=== PATIENT | male | born 1985 | race African-American/Black ===

== ENCOUNTER 2016-12-24 11:49 | Emergency (ER) | payer OTHER ==
[2016-12-24 12:00] VITALS: TEMP 98.3; BMI 27.8
--- NOTE | 2016-12-24 12:15 | PDOC ---
History of Present Illness - General History Source: Patient Exam Limitations: No Limitations - History of Present Illness Initial Comments: 12/24/16 12:26 The patient is a 31 year old male with no significant past medical history who presents to the ED with complaints of generalized abdominal pain since 5 am this morning. The patient reports sharp non radiating generalized abdominal pain that woke him up from his sleep. He states the last thing he ate was a beef rick last night and reports spitting out the beef rick this morning. Denies fevers or chills. Denies nausea, diarrhea, or abdominal distention. Denies chest pain or shortness of breath. Denies dysuria or difficulty urinating. <Eduarda Mclaughlin - Last Filed: 12/24/16 18:24> <William August - Last Filed: 12/24/16 18:41> - General Chief Complaint: Pain, Acute Stated Complaint: ABDOMINAL PAIN Time Seen by Provider: 12/24/16 12:14 Past History <Eduarda Mclaughlin - Last Filed: 12/24/16 18:24> - Past Medical History GI Disorders: Yes (colitis) - Immunization History Immunization Up to Date: No - Psycho/Social/Smoking Cessation Hx Anxiety: No Suicidal Ideation: No Smoking History: Never smoked Have you smoked in the past 12 months: No Hx Alcohol Use: No Drug/Substance Use Hx: No Substance Use Type: Marijuana <William August - Last Filed: 12/24/16 18:41> - Past Medical History Allergies/Adverse Reactions: Allergies Allergy/AdvReac Type Severity Reaction Status Date / Time No Known Allergies Allergy Verified 12/24/16 11:53 Home Medications: Ambulatory Orders Famotidine [Pepcid] 20 mg PO DAILY #14 tablet 09/25/16 Sucralfate Oral Suspension [Carafate Oral Suspension -] 1 gm PO QID #12 ml 09/25 Pantoprazole Sodium [Protonix] 40 mg PO DAILY #30 tablet. 09/26/16 Dicyclomine HCl [Bentyl -] 20 mg PO Q8H #21 tablet 12/24/16 Ondansetron [Zofran *Odt*] 8 mg SL TID #30 od.tablet 12/24/16 Review of Systems - Review of Systems Able to Perform ROS?: Yes Comments:: 12/24/16 12:26 GENERAL/CONSTITUTIONAL: No fever or chills. No weakness. HEAD, EYES, EARS, NOSE AND THROAT: No change in vision. No ear pain or discharge. No sore throat. CARDIOVASCULAR: No chest pain or shortness of breath. RESPIRATORY: No cough, wheezing, or hemoptysis. GASTROINTESTINAL: + Abdominal pain. No nausea, vomiting, diarrhea or constipation. GENITOURINARY: No dysuria, frequency, or change in urination. MUSCULOSKELETAL: No joint or muscle swelling or pain. No neck or back pain. SKIN: No rash NEUROLOGIC: No headache, vertigo, loss of consciousness, or change in strength/ sensation. ENDOCRINE: No increased thirst. No abnormal weight change. HEMATOLOGIC/LYMPHATIC: No anemia, easy bleeding, or history of blood clots. ALLERGIC/IMMUNOLOGIC: No hives or skin allergy. All Other Systems: Reviewed and Negative <Eduarda Mclaughlin - Last Filed: 12/24/16 18:24> *Physical Exam - Vital Signs Last Vital Signs Temp Pulse Resp BP Pulse Ox 98.3 F 63 21 158/85 98 12/24/16 11:54 12/24/16 11:54 12/24/16 11:54 12/24/16 11:54 12/24/16 11:54 - Physical Exam Comments: 12/24/16 12:27 GENERAL: Awake, alert, and fully oriented, in no acute distress HEAD: No signs of trauma EYES: PERRLA, EOMI, sclera anicteric, conjunctiva clear ENT: Auricles normal inspection, hearing grossly normal, nares patent, oropharynx clear without exudates. Moist mucosa NECK: Normal ROM, supple, no lymphadenopathy, JVD, or masses LUNGS: Breath sounds equal, clear to auscultation bilaterally. No wheezes, and no crackles HEART: Regular rate and rhythm, normal S1 and S2, no murmurs, rubs or gallops ABDOMEN: Soft, nontender, normoactive bowel sounds. No guarding, no rebound. No masses EXTREMITIES: Normal range of motion, no edema. No clubbing or cyanosis. No cords, erythema, or tenderness NEUROLOGICAL: Cranial nerves II through XII grossly intact. Normal speech, normal gait SKIN: Warm, Dry, normal turgor, no rashes or lesions noted. <Eduarda Mclaughlin - Last Filed: 12/24/16 18:24> - Vital Signs Last Vital Signs Temp Pulse Resp BP Pulse Ox 98.3 F 63 21 158/85 98 12/24/16 11:54 12/24/16 11:54 12/24/16 11:54 12/24/16 11:54 12/24/16 11:54 <William August - Last Filed: 12/24/16 18:41> Heart Score/ECG Review #1 12/24/16 14:38 Vent. rate 62 bom OH interval 182 ms QRS duraion 90 ms Normal sinus rhythm Voltage criteria for left ventricular hypertrophy ST elevation, consider early repolarization, pericarditis, or injury ST & T wave abnormality, consider inferior ischemia <Eduarda Mclaughlin - Last Filed: 12/24/16 18:24> ED Treatment Course - LABORATORY CBC & Chemistry Diagram: 12/24/16 13:15 12/24/16 13:15 - RADIOLOGY Radiograph Interpretation: 12/24/16 18:24 EXAM: CT ABDOMEN AND PELVIS WITH CONTRAST Ill-defined cortical hypodensities left greater than right kidneys, correlate clinically for pyelonephritis. No bowel obstruction, colitis, diverticulitis, free fluid or free air. Normal appendix. Unremarkable pancreas and gallbladder. Small umbilical hernia containing fat. Reported by: Imaging protection mgr Jeannette Chavez M.D <Eduarda Mclaughlin - Last Filed: 12/24/16 18:24> - LABORATORY CBC & Chemistry Diagram: 12/24/16 13:15 12/24/16 13:15 <William August - Last Filed: 12/24/16 18:41> *DC/Admit/Observation/Transfer - Attestations Physician Attestion: 12/24/16 12:27 Documentation prepared by Eduarda Mclaughlin, acting as medical collector for William August MD <Eduarda Mclaughlin - Last Filed: 12/24/16 18:24> - Discharge Dispostion Admit: No - Attestations Physician Attestion: 12/24/16 12:15 I, Dr. William August, attest that this document has been prepared under my direction and personally reviewed by me in its entirety. I further attest, that it accurately reflects all work, treatment, procedures and medical decision -making performed by me. <William August - Last Filed: 12/24/16 18:41> Diagnosis at time of Disposition: Abdominal pain of unknown cause - Discharge Dispostion Disposition: HOME Condition at time of disposition: Improved - Prescriptions Prescriptions: Dicyclomine HCl [Bentyl -] 20 mg PO Q8H #21 tablet Ondansetron [Zofran *Odt*] 8 mg SL TID #30 od.tablet - Referrals Referrals: Sonido Martinez MD [Staff Physician] - - Patient Instructions Printed Discharge Instructions: DI for Abdominal Pain-Adult Additional Instructions: Mihir.... All of your tests are normal. It is not clear why you were having such bad pain earlier. Call Dr. Martinez (GI) for follow up. Return to us if problems. Use the Zofran for nausea/vomiting. Use the bentyl for crampy pain. Best- Dr. William August
[2016-12-24] MEDS ORDERED: morphine CARPU-JECT 4 MG/1 ML DISP.SYRIN IVPUSH ONE ×2 (12:25→14:08)
[2016-12-24] MEDS ORDERED: SODIUM CHLORIDE 1,000 ML IV STA (12:25)
[2016-12-24] MEDS ORDERED: ONDANSETRON 4 MG/2 ML VIAL IVPB ONE (12:25)
[2016-12-24] MEDS ORDERED: KETOROLAC TROMETHAMINE 30 MG/1 ML VIAL IVPUSH ONE (12:25)
[2016-12-24] MEDS ORDERED: METOCLOPRAMIDE HCL INJECTION 10 MG/2 ML VIAL IVPB ONE (12:25)
[2016-12-24] MEDS ORDERED: METOCLOPRAMIDE HCL INJECTION 10 MG/2 ML VIAL ONE (12:44)
[2016-12-24] MEDS ORDERED: ONDANSETRON 4 MG/2 ML VIAL ONE (12:44)
[2016-12-24] MEDS ORDERED: KETOROLAC TROMETHAMINE 30 MG/1 ML VIAL ONE (12:44)
[2016-12-24] MEDS ORDERED: morphine CARPU-JECT 4 MG/1 ML DISP.SYRIN ONE ×2 (12:44→14:31)
[2016-12-24 13:32] LABS: BASOPHIL 0.3 % (0-2.0); MCH 31.4 pg (25.7-33.7); MCHC 34.4 g/dl (32.0-35.9); MEAN CELL VOLUME 91.4 fl (80-96); MEAN PLT VOLUME 8.6 fl (7.5-11.1); NEUTROPHILS 83.1 % (42.8-82.8); PLATELET COUNT 219 K/MM3 (134-434); RDW 12.5 % (11.9-15.9); WHITE BLOOD COUNT 6.4 K/mm3 (4.0-10.0)
[2016-12-24 13:34] LABS: URINE APPEARANCE CLEAR; URINE BILIRUBIN NEGATIVE (NEGATIVE); URINE BLOOD NEGATIVE (NEGATIVE); URINE COLOR STRAW; URINE GLUCOSE (UA) 1+ (NEGATIVE); URINE KETONE TRACE (NEGATIVE); URINE LEUK ESTERASE NEGATIVE (NEGATIVE); URINE NITRITE NEGATIVE (NEGATIVE); URINE PROTEIN NEGATIVE (NEGATIVE); URINE UROBILINOGEN NEGATIVE E.U./dl (0.2-1.0)
[2016-12-24 13:45] LABS: ALBUMIN 4.4 g/dl (3.4-5.0); ANION GAP 14 (8-16); CALCIUM 9.8 mg/dL (8.5-10.1); CO2 23 mmol/L (21-32); CREATININE 1.2 mg/dL (0.7-1.3); GLUCOSE,RANDOM 123 mg/dL (74-106); SGPT/ALT 22 U/L (12-78)
[2016-12-24 13:46] LABS: ALK PHOS 66 U/L (45-117); TOT PROT 8.3 g/dl (6.4-8.2)
[2016-12-24 13:50] LABS: SGOT/AST 21 U/L (15-37)
[2016-12-24 19:35] VITALS: BP 138/69; PULSE 78
--- NOTE | 2016-12-26 17:17 | EKG ---
Test Reason : Blood Pressure : / mmHG Vent. Rate : 062 BPM Atrial Rate : 062 BPM P-R Int : 182 ms QRS Dur : 090 ms QT Int : 402 ms P-R-T Axes : 010 082 -36 degrees QTc Int : 408 ms NORMAL SINUS RHYTHM VOLTAGE CRITERIA FOR LEFT VENTRICULAR HYPERTROPHY ST ELEVATION, CONSIDER EARLY REPOLARIZATION, PERICARDITIS, OR INJURY ABNORMAL ECG NO PREVIOUS ECGS AVAILABLE Confirmed by DANIEL RUELAS MD ([id number]) on 12/26/2016 5:17:12 PM Referred By: Confirmed By:DANIEL RUELAS MD
== END 2016-12-24 19:36 | disposition home or self-care (01) ==
LOC: JER 11:49
PROC: 3E033NZ Introduction of Analgesics, Hypnotics, Sedatives into Peripheral Vein, Percutaneous Approach (ICD-10-PCS; principal; 2016-12-24)
PROC: 3E0333Z Introduction of Anti-inflammatory into Peripheral Vein, Percutaneous Approach (ICD-10-PCS; 2016-12-24)
PROC: 3E033GC Introduction of Other Therapeutic Substance into Peripheral Vein, Percutaneous Approach (ICD-10-PCS; 2016-12-24)
DX: R10.84 Generalized abdominal pain (principal)
CPT/HCPCS: 36415; 74177-TC; 80053; 81003; 83690; 85025; 93005; 93010; 99283-25; Q9967

== ENCOUNTER 2016-12-26 01:33 | Emergency (ER) | payer OTHER ==
--- NOTE | 2016-12-26 01:48 | PDOC ---
History of Present Illness - General History Source: Patient Exam Limitations: No Limitations - History of Present Illness Initial Comments: 12/26/16 01:56 The patient is a 31 year old male with no significant past medical history who presents to the ED with diffuse abdominal pain prior to arrival. Patient was seen in the ER on 12/24 for diffuse abdominal pain where he had an abdomen and pelvis CT that revealed colitis. Patient returns today for increasing abdominal pain with no associated nausea, vomiting, and diarrhea. He states the pain resolved after his last visit, but returned prior to presentation. He describes pain as 10/10 and collicky in nature. He also had a bowel movement just prior to arrival. The patient denies fever, chills, cough, SOB, chest pain, and palpitations. Allergies: NKDA Social History: No alcohol, tobacco, or drug use reported. Past Surgical History: None reported PCP: None reported <Sabine Michaud - Last Filed: 12/26/16 01:55> - General History Source: Patient <Boby Barry - Last Filed: 12/26/16 06:23> - General Stated Complaint: ABD PAIN Time Seen by Provider: 12/26/16 01:44 Past History <Sabine Michaud - Last Filed: 12/26/16 01:55> - Past Medical History GI Disorders: Yes (colitis) - Immunization History Immunization Up to Date: No - Psycho/Social/Smoking Cessation Hx Anxiety: No Suicidal Ideation: No Smoking History: Never smoked Have you smoked in the past 12 months: No Hx Alcohol Use: No Drug/Substance Use Hx: No Substance Use Type: Marijuana <Boby Barry - Last Filed: 12/26/16 06:23> - Past Medical History Allergies/Adverse Reactions: Allergies Allergy/AdvReac Type Severity Reaction Status Date / Time No Known Allergies Allergy Verified 12/26/16 01:59 Home Medications: Ambulatory Orders Ibuprofen 800 mg PO TID #30 tablet 12/26/16 Levofloxacin [Levaquin -] 500 mg PO DAILY #7 tablet 12/26/16 Metronidazole [Flagyl] 500 mg PO BID #14 tablet 12/26/16 Oxycodone HCl/Acetaminophen [Percocet 5-325 mg Tablet] 1 - 2 tab PO Q6H #20 tablet MDD 4 12/26/16 Review of Systems - Review of Systems Able to Perform ROS?: Yes Comments:: 12/26/16 01:56 CONSTITUTIONAL: Absent: fever, no chills, no fatigue EYES: Absent: visual changes ENT: Absent: ear pain, no sore throat CARDIOVASCULAR: Absent: chest pain, no palpitations RESPIRATORY: Absent: cough, no SOB GI: +abdominal pain Absent: no nausea, no vomiting, no constipation, no diarrhea GENITOURINARY: Absent: dysuria, no frequency, no hematuria MUSCULOSKELETAL: Absent: back pain, no arthralgia, no myalgia SKIN: Absent: rash NEURO: Absent: headache <Sabine Michaud - Last Filed: 12/26/16 01:55> *Physical Exam - Physical Exam Comments: 12/26/16 01:56 GENERAL: Well-appearing, well-nourished. Moderate distress. HEENT: Normocephalic, atraumatic. PERRL, EOM intact. CARDIOVASCULAR: Normal S1, S2. Regular rate and rhythm. PULMONARY: Clear to auscultation bilaterally. ABDOMEN: Soft, non-distended, mild diffuse tenderness. No rebound or guarding. EXTREMITIES: Normal ROM in all four extremities. No gross deformities. SKIN: Warm, dry. No rash NEUROLOGICAL: No focal neurological deficits. <Sabine Michaud - Last Filed: 12/26/16 01:55> ED Treatment Course - LABORATORY CBC & Chemistry Diagram: 12/26/16 02:00 12/26/16 02:00 <Boby Barry - Last Filed: 12/26/16 06:23> Medical Decision Making - Medical Decision Making 12/26/16 06:20 Dr. Barry: The scribe's documentation has been prepared under my direction and personally reviewed by me in its entirery. I confirm that the note above accurately reflects all work, treatment, procedures, and medical decision making performed by me. <Boby Barry - Last Filed: 12/26/16 06:23> *DC/Admit/Observation/Transfer - Attestations Scribe Attestion: 12/26/16 01:56 Documentation prepared by Sabine Michaud, acting as medical director/head team physician for Boby Barry MD <Sabine Michaud - Last Filed: 12/26/16 01:55> - Discharge Dispostion Admit: No <Boby Barry - Last Filed: 12/26/16 06:23> Diagnosis at time of Disposition: Colitis Abdominal pain Qualifiers: Abdominal location: generalized Qualified Code(s): R10.84 - Generalized abdominal pain - Discharge Dispostion Disposition: HOME Condition at time of disposition: Stable - Prescriptions Prescriptions: Metronidazole [Flagyl] 500 mg PO BID #14 tablet Ibuprofen 800 mg PO TID #30 tablet Levofloxacin [Levaquin -] 500 mg PO DAILY #7 tablet Oxycodone HCl/Acetaminophen [Percocet 5-325 mg Tablet] 1 - 2 tab PO Q6H #20 tablet MDD 4 - Referrals Referrals: William Negrete MD [Staff Physician] - - Patient Instructions Printed Discharge Instructions: DI for Colitis - Post Discharge Activity Work/School Note: Back to Work, Back to School
[2016-12-26] MEDS ORDERED: SODIUM CHLORIDE 1,000 ML IV STA (01:49)
[2016-12-26] MEDS ORDERED: FAMOTIDINE 20 MG/50 ML IVPB 50 ML IVPB ONE ×2 (01:49→01:57)
[2016-12-26] MEDS ORDERED: ONDANSETRON 4 MG/2 ML VIAL IVPUSH ONE (01:49)
[2016-12-26] MEDS ORDERED: KETOROLAC TROMETHAMINE 30 MG/1 ML VIAL IVPUSH ONE (01:49)
[2016-12-26] MEDS ORDERED: METRONIDAZOLE 500 MG PREMIXED 100 ML IVPB ONE ×2 (01:52→01:57)
[2016-12-26] MEDS ORDERED: LEVOFLOXACIN 500 MG IVPB 100 ML IVPB ONE ×2 (01:52→01:57)
[2016-12-26] MEDS ORDERED: KETOROLAC TROMETHAMINE 30 MG/1 ML VIAL ONE (01:56)
[2016-12-26] MEDS ORDERED: ONDANSETRON 4 MG/2 ML VIAL ONE (01:57)
[2016-12-26 02:00] VITALS: TEMP 98.2; BMI 26.6
[2016-12-26 02:28] LABS: BASOPHIL 0.5 % (0-2.0); EOSINOPHIL 0.9 % (0-4.5); MCH 31.3 pg (25.7-33.7); MCHC 34.8 g/dl (32.0-35.9); MEAN CELL VOLUME 89.8 fl (80-96); MEAN PLT VOLUME 8.3 fl (7.5-11.1); PLATELET COUNT 248 K/MM3 (134-434); RDW 12.5 % (11.9-15.9); WHITE BLOOD COUNT 6.8 K/mm3 (4.0-10.0)
[2016-12-26 02:43] LABS: INR 1.18 (0.82-1.09)
[2016-12-26] MEDS ORDERED: HYDROmorphone HCL CARPU-JECT 1 MG/1 ML DISP.SYRIN IVPUSH ONE ×2 (02:45→03:34)
[2016-12-26] MEDS ORDERED: HYDROmorphone HCL CARPU-JECT 1 MG/1 ML DISP.SYRIN ONE ×2 (02:47→03:43)
[2016-12-26 03:13] LABS: ALBUMIN 4.1 g/dl (3.4-5.0); ALK PHOS 63 U/L (45-117); AMYLASE 66 U/L (25-115); ANION GAP 13 (8-16); BILIRUBIN,TOTAL 1.5 mg/dL (0.2-1.0); CALCIUM 9.3 mg/dL (8.5-10.1); CO2 26 mmol/L (21-32); CREATININE 1.3 mg/dL (0.7-1.3); GLUCOSE,RANDOM 110 mg/dL (74-106); MAGNESIUM 1.8 mg/dL (1.8-2.4); SGOT/AST 14 U/L (15-37); SGPT/ALT 20 U/L (12-78); TOT PROT 7.4 g/dl (6.4-8.2)
[2016-12-26] MEDS ORDERED: POTASSIUM CHLORIDE TABS 20 MEQ TABLET.ER (FP) PO ONE ×3 (03:32→03:46)
[2016-12-26] MEDS ORDERED: OXYCODONE/APAP 5/325MG COMBO TABLET PO ONE (06:22)
[2016-12-26] MEDS ORDERED: OXYCODONE/APAP 5/325MG COMBO TABLET ONE (06:37)
[2016-12-26 06:46] VITALS: BP 130/57; PULSE 83
[2016-12-26] MEDS ORDERED: ONDANSETRON *ODT* 4 MG TABLET SL ONE (08:38)
[2016-12-26] MEDS ORDERED: morphine CARPU-JECT 2 MG/1 ML DISP.SYRIN SQ ONE (08:43)
[2016-12-26] MEDS ORDERED: morphine CARPU-JECT 4 MG/1 ML DISP.SYRIN ONE (08:44)
[2016-12-26] MEDS ORDERED: ONDANSETRON *ODT* 4 MG TABLET ONE (08:44)
== END 2016-12-26 10:41 | disposition home or self-care (01) ==
LOC: JER 01:33
PROC: 3E03329 Introduction of Other Anti-infective into Peripheral Vein, Percutaneous Approach (ICD-10-PCS; principal; 2016-12-26)
PROC: 3E033GC Introduction of Other Therapeutic Substance into Peripheral Vein, Percutaneous Approach (ICD-10-PCS; 2016-12-26)
PROC: 3E03329 Introduction of Other Anti-infective into Peripheral Vein, Percutaneous Approach (ICD-10-PCS; 2016-12-26)
PROC: 3E033NZ Introduction of Analgesics, Hypnotics, Sedatives into Peripheral Vein, Percutaneous Approach (ICD-10-PCS; 2016-12-26)
PROC: 3E0333Z Introduction of Anti-inflammatory into Peripheral Vein, Percutaneous Approach (ICD-10-PCS; 2016-12-26)
PROC: 3E023NZ Introduction of Analgesics, Hypnotics, Sedatives into Muscle, Percutaneous Approach (ICD-10-PCS; 2016-12-26)
DX: K52.9 Noninfective gastroenteritis and colitis, unspecified (principal)
CPT/HCPCS: 36415; 80053; 82150; 83690; 83735; 85025; 85610; 87040; 99282-25

== ENCOUNTER 2017-06-11 21:47 | Emergency (ER) | payer OTHER ==
[2017-06-11 21:57] VITALS: BP 121/104; PULSE 65; TEMP 97.7; BMI 27.8
[2017-06-11] MEDS ORDERED: SODIUM CHLORIDE 0.9% 1000 ML INFUS.BAG IV ONE (22:18)
[2017-06-11] MEDS ORDERED: morphine CARPU-JECT 2 MG/1 ML DISP.SYRIN IVPUSH ONE (22:18)
[2017-06-11] MEDS ORDERED: KETOROLAC TROMETHAMINE 30 MG/1 ML VIAL IVPUSH ONE (22:21)
[2017-06-11] MEDS ORDERED: morphine CARPU-JECT 2 MG/1 ML DISP.SYRIN ONE (22:44)
[2017-06-11] MEDS ORDERED: ONDANSETRON 4 MG/2 ML VIAL ONE (22:55)
[2017-06-11] MEDS ORDERED: ONDANSETRON 4 MG/2 ML VIAL IVPUSH ONE (23:02)
[2017-06-11] MEDS ORDERED: HYDROmorphone HCL CARPU-JECT 1 MG/1 ML DISP.SYRIN IVPUSH ONE (23:26)
[2017-06-11] MEDS ORDERED: HYDROmorphone HCL CARPU-JECT 1 MG/1 ML DISP.SYRIN ONE (23:28)
--- NOTE | 2017-06-11 23:37 | PDOC ---
History of Present Illness - General Chief Complaint: Pain Stated Complaint: STOMACH PAIN Time Seen by Provider: 06/11/17 22:08 - History of Present Illness Initial Comments: 06/11/17 23:36 CHIEF COMPLAINT: abd pain HISTORY OF PRESENT ILLNESS: 31 yo M with hx of colitis presents to ED with severe epigastric pain. Patient states that he has 4 episodes like this with one visit at [facility] and 3 visits to this hospital. Patient states he saw Dr. Martinez of GI approximately 2 months ago and had a negative endoscopy, but he was supposed to follow up with Dr. Martinez "but there was a crisis at my job so I wasn't able to make the appointment" and then he never followed up. Patient denies any vomiting, diarrhea, or rectal bleeding. PAST MEDICAL HISTORY: possible colitis per EMR FAMILY HISTORY: Denies SOCIAL HISTORY: Former marijuana user, patient reports that his last use was 2 months ago due to previous similar episodes of abd pain. Denies tobacco, alcohol , illicit drug use. SURGICAL HISTORY: Denies ALLERGIES: No known drug allergies REVIEW OF SYSTEMS General/Constitutional: Denies fever or chills. Denies weakness, weight change. HEENT: Denies change in vision. Denies ear pain or discharge. Denies sore throat. Cardiovascular: Denies chest pain or shortness of breath. Respiratory: Denies cough, wheezing, or hemoptysis. Gastrointestinal: Severe epigastric pain. Denies nausea, vomiting, diarrhea or constipation. Denies rectal bleeding. Genitourinary: Denies dysuria, frequency, or change in urination. Musculoskeletal: Denies joint or muscle swelling or pain. Denies neck or back pain. Skin and breasts: Denies rash or easy bruising. Neurologic: Denies headache, vertigo, loss of consciousness, or loss of sensation. PHYSICAL EXAM General Appearance: Well-appearing, appropriately dressed. No apparent distress. HEENT: EOMI, PERRLA, normal ENT inspection, normal voice, TMs normal, pharynx normal. No conjunctival pallor. No photophobia, scleral icterus. Neck: Supple. Trachea midline. No tenderness, rigidity, carotid bruit, stridor , lymphadenopathy, or thyromegaly. Respiratory/Chest: Lungs CTAB. Cardiovascular: RRR. S1, S2. Gastrointestinal/Abdominal: Normal bowel sounds. Abdomen soft, non-distended. No tenderness or rebound tenderness. No organomegaly, pulsatile mass, guarding , hernia, hepatomegaly, splenomegaly. Musculoskeletal/Extremities: Marked tenderness to epigastrum on palpation. Normal inspection. FROM of all extremities, normal capillary refill. Pelvis Stable. No CVA tenderness. No tenderness to extremities, pedal edema, swelling , erythema or deformity. Integumentary: Appropriate color, dry, warm. 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 Fully oriented, alert. Appropriate mood/affect. Motor strength 5/5. No appreciable EOM palsy, facial droop or sensory deficit. Past History - Past Medical History Allergies/Adverse Reactions: Allergies Allergy/AdvReac Type Severity Reaction Status Date / Time No Known Allergies Allergy Verified 06/11/17 21:54 Home Medications: Ambulatory Orders Ibuprofen 800 mg PO TID #30 tablet 12/26/16 Levofloxacin [Levaquin -] 500 mg PO DAILY #7 tablet 12/26/16 Metronidazole [Flagyl] 500 mg PO BID #14 tablet 12/26/16 Oxycodone HCl/Acetaminophen [Percocet 5-325 mg Tablet] 1 - 2 tab PO Q6H #20 tablet MDD 4 12/26/16 GI Disorders: Yes (colitis) - Immunization History Immunization Up to Date: No - Psycho/Social/Smoking Cessation Hx Anxiety: No Suicidal Ideation: No Smoking History: Never smoked Have you smoked in the past 12 months: No Information on smoking cessation initiated: No Hx Alcohol Use: No Drug/Substance Use Hx: No Substance Use Type: Marijuana Abd/GI Specific PMHX - Complaint Specific PMHX Colitis: Yes *Physical Exam - Vital Signs Last Vital Signs Temp Pulse Resp BP Pulse Ox 97.7 F 65 20 121/104 100 06/11/17 21:54 06/11/17 21:54 06/11/17 21:54 06/11/17 21:54 06/11/17 21:54 ED Treatment Course - LABORATORY CBC & Chemistry Diagram: 06/11/17 22:40 06/11/17 23:22 - RADIOLOGY Radiology Studies Ordered: Category Date Time Status ABDOMEN & PELVIS CT W/O CONTR [CT] Stat CT Scan 06/11/17 23:03 Ordered - Medications Given in the ED: ED Medications Discontinued Medications Generic Name Dose Route Start Last Admin Trade Name Freq PRN Reason Stop Dose Admin Ketorolac Tromethamine 30 mg 06/11/17 22:21 06/11/17 22:52 Toradol Injection - IVPUSH 06/11/17 22:22 30 mg ONCE ONE Administration Morphine Sulfate 2 mg 06/11/17 22:18 06/11/17 22:52 Morphine Injection - IVPUSH 06/11/17 22:19 2 mg ONCE ONE Administration Ondansetron HCl 8 mg 06/11/17 23:02 06/11/17 23:04 Zofran Injection IVPUSH 06/11/17 23:03 8 mg ONCE ONE Administration Sodium Chloride 1,000 ml 06/11/17 22:18 06/11/17 22:52 Normal Saline - IV 06/11/17 22:19 1,000 ml ONCE ONE Administration Medical Decision Making - Medical Decision Making 06/12/17 00:30 31 yo M with hx of colitis presents to ED with severe epigastric pain. -CBC, CMP, lipase -IVF -Zofran, morphine Patient continues to c/o severe pain. -1 mg Dilaudid IV Labs unremarkable. Reassessed patient after medication. Patient states he is feeling much better. He states that "I don't know why this keeps happening, they always do a CT scan when I have pain like this, and then they tell me my CT scans are negative. " Patient states that he would prefer to go home at this time than continue further workup as "you won't find anything, it's always like this." He states he will f/u with Dr. Martinez this week for further evaluation of recurrent acute pain of the abdomen. However patient states he would like to "wait for a little bit to see if the pain returns." Patient reassessed; at this time he states his pain has returned. -0.5 mg Dilaudid Patient will receive CT. 06/12/17 00:35 Ct negative for acute pathology. Patient states at this time the "pain is gone" and is ready to go home. Advised patient that he must f/u with Dr. Martinez this week per earlier discussion. Advised patient of signs and symptoms for return to ER; patient verbalized understanding and agrees to plan. *DC/Admit/Observation/Transfer Diagnosis at time of Disposition: Abdominal pain Qualifiers: Abdominal location: generalized Qualified Code(s): R10.84 - Generalized abdominal pain - Discharge Dispostion Disposition: HOME Condition at time of disposition: Stable Admit: No - Referrals Referrals: Sonido Martinez MD [Staff Physician] - - Patient Instructions Printed Discharge Instructions: DI for Abdominal Pain-Adult Additional Instructions: You MUST follow up with Dr. Martinez this week as we discussed. If you experience any fever, chills, nausea, vomiting, diarrhea or any new or worsening symptoms, please return to the ER immediately.
[2017-06-11 23:46] LABS: BASOPHIL 0.5 % (0-2.0); EOSINOPHIL 1.9 % (0-4.5); MCH 31.8 pg (25.7-33.7); MCHC 34.6 g/dl (32.0-35.9); MEAN CELL VOLUME 91.8 fl (80-96); MEAN PLT VOLUME 8.3 fl (7.5-11.1); NEUTROPHILS 51.3 % (42.8-82.8); PLATELET COUNT 208 K/MM3 (134-434); WHITE BLOOD COUNT 6.9 K/mm3 (4.0-10.0)
[2017-06-12 00:09] LABS: ALBUMIN 4.2 g/dl (3.4-5.0); ALK PHOS 61 U/L (45-117); ANION GAP 11 (8-16); BILIRUBIN,TOTAL 0.7 mg/dL (0.2-1.0); CALCIUM 9.2 mg/dL (8.5-10.1); CO2 28 mmol/L (21-32); CREATININE 1.2 mg/dL (0.7-1.3); GLUCOSE,RANDOM 92 mg/dL (74-106); SGOT/AST 14 U/L (15-37); SGPT/ALT 20 U/L (12-78); TOT PROT 7.5 g/dl (6.4-8.2)
[2017-06-12] MEDS ORDERED: HYDROmorphone HCL CARPU-JECT 1 MG/1 ML DISP.SYRIN IVPUSH ONE (01:32)
[2017-06-12] MEDS ORDERED: HYDROmorphone HCL CARPU-JECT 1 MG/1 ML DISP.SYRIN ONE (02:10)
[2017-06-12 05:16] LABS: URINE APPEARANCE CLEAR; URINE BILIRUBIN NEGATIVE (NEGATIVE); URINE BLOOD NEGATIVE (NEGATIVE); URINE COLOR LTYELLOW; URINE GLUCOSE (UA) NEGATIVE (NEGATIVE); URINE KETONE NEGATIVE (NEGATIVE); URINE LEUK ESTERASE NEGATIVE (NEGATIVE); URINE NITRITE NEGATIVE (NEGATIVE); URINE PROTEIN NEGATIVE (NEGATIVE); URINE UROBILINOGEN NEGATIVE mg/dL (0.2-1.0)
[2017-06-12 05:21] LABS: URINE MARIJUANA THC POSITIVE ng/ml (CUTOFF=50)
== END 2017-06-12 05:32 | disposition home or self-care (01) ==
LOC: JER 21:47
PROC: 3E033NZ Introduction of Analgesics, Hypnotics, Sedatives into Peripheral Vein, Percutaneous Approach (ICD-10-PCS; principal; 2017-06-11)
PROC: 3E033NZ Introduction of Analgesics, Hypnotics, Sedatives into Peripheral Vein, Percutaneous Approach (ICD-10-PCS; 2017-06-11)
PROC: 3E033NZ Introduction of Analgesics, Hypnotics, Sedatives into Peripheral Vein, Percutaneous Approach (ICD-10-PCS; 2017-06-11)
PROC: 3E033GC Introduction of Other Therapeutic Substance into Peripheral Vein, Percutaneous Approach (ICD-10-PCS; 2017-06-11)
PROC: 3E0333Z Introduction of Anti-inflammatory into Peripheral Vein, Percutaneous Approach (ICD-10-PCS; 2017-06-11)
DX: R10.84 Generalized abdominal pain (principal)
CPT/HCPCS: 36415; 74176-TC; 80053; 80307; 81003; 83690; 85025; 85610; 87086; 99282-25

== ENCOUNTER 2017-07-02 01:24 | Emergency (ER) | payer OTHER ==
[2017-07-02 03:08] VITALS: BMI 27.8
[2017-07-02] MEDS ORDERED: ONDANSETRON 4 MG/2 ML VIAL IVPB ONE (03:27)
[2017-07-02] MEDS ORDERED: KETOROLAC TROMETHAMINE 30 MG/1 ML VIAL IVPUSH ONE (03:27)
[2017-07-02] MEDS ORDERED: SODIUM CHLORIDE 1,000 ML IV STA (03:27)
[2017-07-02] MEDS ORDERED: KETOROLAC TROMETHAMINE 30 MG/1 ML VIAL ONE (03:39)
[2017-07-02] MEDS ORDERED: ONDANSETRON 4 MG/2 ML VIAL ONE (03:40)
--- NOTE | 2017-07-02 03:55 | PDOC ---
History of Present Illness - General Chief Complaint: Pain, Acute Stated Complaint: STOMACH PAIN Time Seen by Provider: 07/02/17 02:46 History Source: Patient Exam Limitations: No Limitations - History of Present Illness Initial Comments: 07/02/17 03:48 Patient is a 31M with history of abdominal pain (last seen 06/11, seen 5 other times in the past two years, all negative workups) here today complaining abdominal pain. Got full abdominal lab workup with abdominal CT with 1.5mg dilaudid given, workup negative. Today he is complaining of 12 hours epigastric pain, nonradiating. He rates the pain 10/10. He presented to the ED by laying down in the ED waiting room bathroom, unable to get up because of the pain. He then got up and walked to the wheelchair. He is complaining of associated nausea , vomiting, fevers, and chills. He states that he has seen Dr Cantrell as directed at his last visit and has an MRI set up to evaluate his abdominal pain. Past History - Past Medical History Allergies/Adverse Reactions: Allergies Allergy/AdvReac Type Severity Reaction Status Date / Time No Known Allergies Allergy Verified 07/02/17 03:08 Home Medications: Ambulatory Orders Ibuprofen 800 mg PO TID #30 tablet 12/26/16 Levofloxacin [Levaquin -] 500 mg PO DAILY #7 tablet 12/26/16 Metronidazole [Flagyl] 500 mg PO BID #14 tablet 12/26/16 Oxycodone HCl/Acetaminophen [Percocet 5-325 mg Tablet] 1 - 2 tab PO Q6H #20 tablet MDD 4 12/26/16 GI Disorders: Yes (colitis) - Immunization History Immunization Up to Date: No - Suicide/Smoking/Psychosocial Hx Smoking History: Former smoker Have you smoked in the past 12 months: Yes If you are a former smoker, when did you quit?: 02/24/2017 Information on smoking cessation initiated: No Hx Alcohol Use: Yes Drug/Substance Use Hx: No Substance Use Type: Alcohol, Marijuana Review of Systems - Review of Systems Comments:: 07/02/17 03:55 GENERAL/CONSTITUTIONAL: Positive for fevers, chills and diffuse weakness. HEAD, EYES, EARS, NOSE AND THROAT: No change in vision. No sore throat. CARDIOVASCULAR: No chest pain or shortness of breath RESPIRATORY: No cough, wheezing, or hemoptysis. GASTROINTESTINAL: Positive for nausea and vomiting. Negative for diarrhea or constipation. GENITOURINARY: No dysuria, frequency, or change in urination. MUSCULOSKELETAL: No joint or muscle swelling or pain. No neck or back pain. SKIN: No rash NEUROLOGIC: No headache, loss of consciousness, or change in strength/sensation. HEMATOLOGIC/LYMPHATIC: No anemia, easy bleeding, or history of blood clots. ALLERGIC/IMMUNOLOGIC: No hives or skin allergy. *Physical Exam - Vital Signs Last Vital Signs Temp Pulse Resp BP Pulse Ox 96.8 F L 89 18 155/93 99 07/02/17 03:05 07/02/17 03:05 07/02/17 03:05 07/02/17 03:05 07/02/17 03:05 - Physical Exam Comments: 07/02/17 03:57 GENERAL: Awake, alert, and fully oriented, in acute distress, screaming and flailing on bed HEAD: No signs of trauma, normocephalic, atraumatic EYES: PERRLA, EOMI, sclera anicteric, conjunctiva clear ENT: Auricles normal inspection, hearing grossly normal, nares patent, oropharynx clear without exudates. Moist mucosa LUNGS: No distress, speaks full sentences, clear to auscultation bilaterally HEART: Regular rate and rhythm, normal S1 and S2, no murmurs, rubs or gallops, peripheral pulses normal and equal bilaterally. ABDOMEN: Soft, nontender to palpation, normoactive bowel sounds. No guarding, no rebound. No masses. No reaction to bed shake. Sitting up during abdominal exam. EXTREMITIES: Normal inspection, Normal range of motion, no edema. NEUROLOGICAL: Cranial nerves II through XII grossly intact. Normal speech, normal gait, no focal sensorimotor deficits SKIN: Warm, Dry, normal turgor, no rashes or lesions noted. ED Treatment Course - LABORATORY CBC & Chemistry Diagram: 07/02/17 03:40 07/02/17 03:40 Medical Decision Making - Medical Decision Making 07/02/17 04:00 31M with history of abdominal pain with multiple negative workups here today with abdominal pain. Vital signs stable. Abdominal exam is not consistent with an acute abdomen. Will evaluate with abdominal labs, ua, utox. Will treat with zofran, 1L NS and toradol. Will attempt to avoid imaging due to recent normal CT and planned MRI. 07/02/17 05:54 Laboratory Tests 07/02/17 07/02/17 07/02/17 03:40 03:40 04:00 WBC 7.5 Hgb 13.7 Hct 39.6 Plt Count 241 Anion Gap 12 BUN 14 Creatinine 1.1 Stool Occult Blood U Marijuana (THC) Screen Positive 07/02/17 05:15 WBC Hgb Hct Plt Count Anion Gap BUN Creatinine Stool Occult Blood Negative U Marijuana (THC) Screen CBC shows no white count. UA neg. CMP shows no gap, normal kidney function. Utox positive for marijuana. Patient came to doctor station to complain that he had blood in his stool. He described it as a small amount of dark blood in his stool. Rectal exam showed no melena, no kenny blood, no masses. Occult blood was negative. 07/02/17 07:00 Patient given tylenol for abdominal pain. Ambulatory in ED. Physical exam still not consistent with acute abdomen. Patient is pacing in the ED. States that he' s going to go to another hospital to deal with this pain. Vital signs remain stable and normal. *DC/Admit/Observation/Transfer Diagnosis at time of Disposition: Abdominal pain - Discharge Dispostion Disposition: HOME Condition at time of disposition: Guarded - Referrals Referrals: Liban Ayers MD [Primary Care Provider] -
[2017-07-02 04:13] LABS: BASOPHIL 0.5 % (0-2.0); EOSINOPHIL 0.4 % (0-4.5); MCHC 34.7 g/dl (32.0-35.9); MEAN CELL VOLUME 89.3 fl (80-96); MEAN PLT VOLUME 7.6 fl (7.5-11.1); NEUTROPHILS 72.8 % (42.8-82.8); PLATELET COUNT 241 K/MM3 (134-434); RDW 12.6 % (11.9-15.9); WHITE BLOOD COUNT 7.5 K/mm3 (4.0-10.0)
[2017-07-02 04:15] LABS: URINE APPEARANCE SLCLOUDY; URINE BILIRUBIN NEGATIVE (NEGATIVE); URINE BLOOD NEGATIVE (NEGATIVE); URINE COLOR LTYELLOW; URINE GLUCOSE (UA) NEGATIVE (NEGATIVE); URINE KETONE NEGATIVE (NEGATIVE); URINE LEUK ESTERASE NEGATIVE (NEGATIVE); URINE NITRITE NEGATIVE (NEGATIVE); URINE PROTEIN NEGATIVE (NEGATIVE); URINE UROBILINOGEN NEGATIVE mg/dL (0.2-1.0)
[2017-07-02 04:38] LABS: ALBUMIN 4.1 g/dl (3.4-5.0); ANION GAP 12 (8-16); BILIRUBIN,TOTAL 0.5 mg/dL (0.2-1.0); CALCIUM 8.8 mg/dL (8.5-10.1); CO2 25 mmol/L (21-32); CREATININE 1.1 mg/dL (0.7-1.3); GLUCOSE,RANDOM 118 mg/dL (74-106); SGOT/AST 15 U/L (15-37); SGPT/ALT 21 U/L (12-78); TOT PROT 7.5 g/dl (6.4-8.2)
[2017-07-02 04:39] LABS: ALK PHOS 57 U/L (45-117)
[2017-07-02 05:42] LABS: URINE MARIJUANA THC POSITIVE ng/ml (CUTOFF=50)
[2017-07-02] MEDS ORDERED: ACETAMINOPHEN 1000 MG/100 ML VIAL (NON FORMULARY) IVPB ONE (05:50)
--- NOTE | 2017-07-02 05:53 | PDOC ---
Attending Attestation - Resident Resident Name: NickJohn tang - HPI HPI: 07/02/17 05:51 Pt comes with abd pain. He has been here multiple.times for the same and he has had multiple imaging studies. We will not get imaging today and we will not treat with narcotics. Rather we will chek labs and treat with IV toradol and ofirmev, if needed. - Physicial Exam PE: 07/02/17 05:53 Agree with resident exam - Medical Decision Making 07/02/17 05:53 Lbas normal. Pt will go home with no meds. Follow with PMD or GI.
[2017-07-02] MEDS ORDERED: ACETAMINOPHEN INJECTION 100 ML IVPB ONE (06:30)
[2017-07-02] MEDS ORDERED: MAGNESIUM SULF 50% (8.12 MEQ/2 ML-1 GM VIAL) IVPB ONE (06:36)
[2017-07-02] MEDS ORDERED: MAGNESIUM SULF 50% (8.12 MEQ/2 ML-1 GM VIAL) ONE (06:39)
[2017-07-02 07:00] VITALS: BP 140/96; PULSE 85; TEMP 96.6
== END 2017-07-02 07:04 | disposition home or self-care (01) ==
LOC: JER 01:24
PROC: 3E033NZ Introduction of Analgesics, Hypnotics, Sedatives into Peripheral Vein, Percutaneous Approach (ICD-10-PCS; principal; 2017-07-02)
PROC: 3E033GC Introduction of Other Therapeutic Substance into Peripheral Vein, Percutaneous Approach (ICD-10-PCS; 2017-07-02)
DX: R10.84 Generalized abdominal pain (principal)
CPT/HCPCS: 36415; 80053; 80307; 81003; 82272; 83690; 85025; 99283-25

== ENCOUNTER 2018-05-16 05:01 | Day surgery (SDC) | payer BC ==
[2018-05-13 11:56] VITALS: BMI 26.0
[2018-05-16] MEDS ORDERED: MIDAZOLAM HCL 2 MG/2 ML SINGLE DOSE VIAL ONE (07:24)
[2018-05-16] MEDS ORDERED: KETOROLAC TROMETHAMINE 30 MG/1 ML VIAL ONE (07:26)
[2018-05-16] MEDS ORDERED: DEXAMETHASONE SOD PHOSPHATE 4 MG/1 ML VIAL ONE ×2 (07:26→08:21)
[2018-05-16] MEDS ORDERED: LIDOCAINE HCL/PF 2% SDV 5ML VIAL ONE (07:26)
[2018-05-16] MEDS ORDERED: SUCCINYLCHOLINE CHLORIDE 200 MG/10 ML VIAL ONE (07:28)
[2018-05-16] MEDS ORDERED: BUPIVACAINE HCL/PF 0.5% (5MG/ML) 10 ML VIAL ONE (07:49)
[2018-05-16] MEDS ORDERED: ONDANSETRON 4 MG/2 ML VIAL IVPUSH PRN (07:51)
[2018-05-16] MEDS ORDERED: oxyCODONE HCL 5 MG TABLET PO PRN ×2 (07:51)
[2018-05-16] MEDS ORDERED: ACETAMINOPHEN 1000 MG/100 ML VIAL (NON FORMULARY) IVPB ONE (07:52)
[2018-05-16] MEDS ORDERED: LACTATED RINGERS SOLUTION 1,000 ML IV SCH (08:00)
[2018-05-16] MEDS ORDERED: PROPOFOL 20 ML ONE ×3 (08:07→08:10)
--- NOTE | 2018-05-16 08:19 | HP ---
[facility] - Chief Complaint Chief Complaint: left knee pain History of Present Illness: left knee pain History Source: Patient Limitations to Obtaining History: No Limitations - Past Medical History Allergies/Adverse Reactions: Allergies Allergy/AdvReac Type Severity Reaction Status Date / Time No Known Allergies Allergy Verified 05/16/18 06:38 - Current Medications Current Medications: Home Medications Medication Instructions Recorded Omeprazole 40 mg PO DAILY 05/13/18 Satellite Physical Exam - Physical Examination Vital Signs: Vital Signs Period Temp Pulse Resp BP Sys/Knight Pulse Ox Last 24 Hr 97.7 F 42 18 121/66 99 General Appearance: Well Nourished ENT: Clear Lung: Clear to auscultation Heart: Regular rate & rhythm Breasts: Soft Abdomen: Soft Extremities: No edema Satellite Impression/Plan - Impression/Plan Impression: left knee pain, patella tendon calcifications Operative Procedure: left knee arthroscopy, open excision of patella tendon calcifications Date to be Performed: 05/16/18
[2018-05-16] MEDS ORDERED: ceFAZolin SODIUM 1 GM VIAL IVPB ONE (08:31)
[2018-05-16] MEDS ORDERED: SODIUM CHLORIDE 0.9% P/F 10 ML VIAL IJ ONE (08:31)
[2018-05-16] MEDS ORDERED: ceFAZolin SODIUM 1 GM VIAL ONE (08:31)
[2018-05-16] MEDS ORDERED: BUPIVACAINE HCL/PF 0.5% (5MG/ML) 10 ML VIAL IJ ONE ×2 (08:58→09:36)
--- NOTE | 2018-05-16 09:44 | OP ---
Operative Note - Note: Operative Date: 05/16/18 Pre-Operative Diagnosis: left knee pain Operation: left knee arthroscopy and open excision patella tendon calcifications , open patellar tendon repair Findings: calcifications within patellar tendon Post-Operative Diagnosis: Same as Pre-op Surgeon: Francis Vargas Anesthesiologist/[facility]: Jose J Woodall Anesthesia: Local, MAC Specimens Removed: calcifications from patellar tendon Estimated Blood Loss (mls): 0 Drains, Volume Out (mls): 0 Fluid Volume Replaced (mls): 500 Operative Report Dictated: Yes
[2018-05-16] MEDS ORDERED: MEPERIDINE HCL CARPU-JECT 25 MG/1 ML DISP.SYRIN IVPUSH ONE (09:49)
[2018-05-16] MEDS ORDERED: ACETAMINOPHEN INJECTION 100 ML IVPB ONE (10:11)
--- NOTE | 2018-05-16 10:39 | OP ---
DATE OF OPERATION: 05/16/2018 PREOPERATIVE DIAGNOSES: Left knee pain and patellar calcifications. POSTOPERATIVE DIAGNOSES: Left knee pain and patellar calcifications. PROCEDURE: 1. Left knee arthroscopy. 2. Open excision of patellar tendon calcifications. 3. Open repair of patellar tendon. SURGEON: Francis Vargas MD ASSISTANTS: None. ANESTHESIOLOGIST: ANESTHESIA: LMA with local injection, 20 mL 0.50% Marcaine. DRAINS: None. COMPLICATIONS: None. SPECIMEN: Calcifications, left patellar tendon. BLOOD LOSS: None. BLOOD GIVEN: None. FLUID REPLACEMENT: Plasma-Lyte 500 mL. This patient is a 32-year-old male with a preoperative diagnosis of very long-term, chronic pain in the left knee. After understanding the potential risks, complications, alternatives, and benefits of surgery versus nonsurgical treatment, the patient elected to undergo this procedure. Patient was brought to the operating room, peripheral IV placed, IV sedation given. One gram of IV Ancef was given. LMA anesthesia was induced. He was placed into the C-clamp leg estrada with ample padding on his left leg, and the Styrofoam ring was used. The left lower extremity was then prepped and draped in sterile fashion, elevated, exsanguinated with an Esmarch bandage. Tourniquet inflated to 275 mmHg. Next, a standard left knee arthroscopy was performed. A superomedial outflow portal was established. A lateral portal was established under direct visualization. Using a spinal needle, a medial portal was established. Diagnostic arthroscopy was performed. The medial compartment looked good, including the medial meniscus. The intercondylar notch looked good including the ACL. The lateral compartment looked good including the lateral meniscus. There was a lot of excessive Hoffa fat pad and synovitis anterior to the intercondylar notch and underneath the patellar tendon. This was all debrided with a curved shaver. The undersurface of the patellar tendon and the femoral trochlea looked good. There was excessive scar tissue in this area. This was debrided as well. The area was copiously irrigated and washed out. The knee put through a range of motion. I directly visualized the patellofemoral joint. There were no other points of abnormal contact, and the undersurface of the patellar tendon now looked good. Next, all arthroscopic equipment was removed. The excess saline removed. The arthroscopy portals closed with 3-0 nylon suture. A straight midline incision was marked out with a marking pen and made with a number-15 scalpel blade. Subcutaneous hemostasis was achieved with the Bovie cautery. Dissection was done down to the patellar bursa. This was opened longitudinally. Flaps were raised medially and laterally. This exposed the patellar tendon. On the surface, it looked normal. I was then able to palpate large calcifications within the proximal patellar tendon, extending from the distal pole of the patella. A number-15 scalpel blade was utilized to cut down through the patellar tendon to get to these calcifications. Circumferential dissection was done with the Bovie cautery. This exposed 1 very large and several smaller calcifications. An osteotome and rongeur were used to remove the calcifications and to smooth out the edges on the inferior pole of the patella. Scar tissue was removed as well. The area was copiously irrigated and washed out. I then could no longer see or feel any other abnormal calcifications. I then repaired the torn portions of the patellar tendon with 2-0 Vicryl suture. I used 2-0 Vicryl to close the prepatellar fascia and bursa directly over the patellar tendon repair, 2-0 Vicryl was used to close the deep dermal, and final skin reapproximation was done with horizontal mattress 3-0 nylon sutures. The area was then washed and dried, and 20 mL of 0.50% Marcaine were injected in and around the surgical incision. Xeroform gauze was used, 4 x 4 gauze, Webril, and a 6-inch Seth bandage. The tourniquet was taken down after total tourniquet time of 50 minutes. There were no complications during the case. The patient tolerated the procedure quite well and was brought to the ambulatory recovery room in stable condition. Greer [id number]
[2018-05-16 10:50] VITALS: TEMP 98
[2018-05-16] MEDS ORDERED: oxyCODONE HCL 5 MG TABLET ONE (11:59)
[2018-05-16] MEDS ORDERED: oxyCODONE HCL 5 MG TABLET PO ONE (12:00)
[2018-05-16 13:04] VITALS: BP 129/85; PULSE 45
--- NOTE | 2018-05-20 17:08 | PATH ---
Surgical Pathology Report Patient Name: MAYLIN MENDOZA Med. Rec. #: [id number] /Age/Gender: 1985 (Age: 32) / M Account: [id number] Location: [facility] Taken: 05/16/2018 Received: 05/16/2018 Reported: 05/20/2018 Physicians: Francis Vargas M.D. Specimen(s) Received A: LEFT KNEE SHAVINGS B: LEFT PATELLA CALCIFICATION Clinical History Tear left knee Final Diagnosis A. LEFT KNEE SHAVINGS: FRAGMENTS OF SYNOVIAL TISSUE AND FIBROADIPOSE TISSUE WITH FOCAL FIBROSIS. B. LEFT PATELLA CALCIFICATION, EXCISION: FRAGMENTS OF FIBROCARTILAGINOUS TISSUE AND BONE WITH FATTY MARROW SHOWING DEGENERATIVE CHANGE. Electronically Signed Terry Mcfarlane M.D. Gross Description A. Received in formalin, labeled "left knee shavings," is a 2.3 x 2.2 x 0.4 cm. aggregate of conroy-yellow soft tissue fragments. A aircraft sales representative portion is submitted in one cassette. B. Received in formalin labeled "left patella calcification," is a 3.0 x 2.4 x 0.6 cm aggregate of conroy portions of bone and cartilage. Clinical Athletic Instructor sections are submitted in one cassette, following decalcification. 05/16/201805/16/2018
== END 2018-05-16 13:20 | disposition home or self-care (01) ==
LOC: JASU-SURG 05:01
PROVIDERS: ATTEND Orthopaedic Surgery
PROC: 0LQR0ZZ Repair Left Knee Tendon, Open Approach (ICD-10-PCS; 2018-05-16)
PROC: 0SBD4ZZ Excision of Left Knee Joint, Percutaneous Endoscopic Approach (ICD-10-PCS; principal; 2018-05-16 08:00)
DX: M25.862 Other specified joint disorders, left knee (principal); M25.562 Pain in left knee
CPT/HCPCS: 88304-TC; 88311-TC; 94760; J0131

== ENCOUNTER 2019-12-10 22:19 | Emergency (ER) | payer BC ==
[2019-12-10 22:22] VITALS: BP 153/90; PULSE 76; TEMP 98; BMI 25.7
[2019-12-10] MEDS ORDERED: ONDANSETRON 4 MG/2 ML VIAL IVPUSH ONE (22:35)
[2019-12-10] MEDS ORDERED: LACTATED RINGERS SOLUTION 1000 ML INFUS.BAG IV ONE ×2 (22:35→23:53)
[2019-12-10] MEDS ORDERED: FAMOTIDINE 20 MG/50 ML IVPB 20 MG/50 ML MG IVPB ONE ×2 (22:35→22:55)
[2019-12-10] MEDS ORDERED: morphine CARPU-JECT 4 MG/1 ML DISP.SYRIN IVPUSH ONE (22:35)
[2019-12-10] MEDS ORDERED: morphine SULFATE 4 MG/ML VIAL ONE (22:44)
[2019-12-10] MEDS ORDERED: ONDANSETRON 4 MG/2 ML VIAL ONE (22:44)
[2019-12-10 23:11] LABS: BASO % 0.9 % (0-2.0); EOS % 2.5 % (0-4.5); HEMATOCRIT 39.4 % (35.4-49); HEMOGLOBIN 13.5 GM/dL (11.7-16.9); MCHC 34.4 g/dl (32.0-35.9); MEAN CELL VOLUME 93.2 fl (80-96); MEAN PLT VOLUME 8.2 fl (7.5-11.1); MONO % 8.5 % (3.8-10.2); NEUT % 29.1 % (42.8-82.8); PLATELET COUNT 213 K/MM3 (134-434); RBC 4.23 M/mm3 (4.00-5.60); WHITE BLOOD COUNT 5.1 K/mm3 (4.0-10.0)
[2019-12-10] MEDS ORDERED: LORazepam 2 MG/ML SDV VIAL ONE (23:25)
--- NOTE | 2019-12-10 23:26 | PDOC ---
History of Present Illness - General Chief Complaint: Pain Stated Complaint: CHEST PAIN Time Seen by Provider: 12/10/19 22:27 Past History - Past Medical History Allergies/Adverse Reactions: Allergies Allergy/AdvReac Type Severity Reaction Status Date / Time No Known Allergies Allergy Verified 12/10/19 22:23 Home Medications: Ambulatory Orders Omeprazole 40 mg PO DAILY 05/13/18 Hydrocodone/Acetaminophen [Hydrocodone-Acetamin 5-325 mg] 1 - 2 tab PO TID PRN # 40 tablet MDD 6 05/16/18 Anemia: No Asthma: No Cancer: No Cardiac Disorders: No CVA: No COPD: No CHF: No Dementia: No Diabetes: No GI Disorders: Yes (colitis) Disorders: No HTN: No Hypercholesterolemia: No Liver Disease: No Seizures: No Thyroid Disease: No - Immunization History Immunization Up to Date: No - Psycho Social/Smoking Cessation Hx Smoking History: Never smoked Have you smoked in the past 12 months: Yes If you are a former smoker, when did you quit?: 02/24/2017 Hx Alcohol Use: Yes (OCCASIONAL) Drug/Substance Use Hx: No Substance Use Type: Alcohol, Marijuana Hx Substance Use Treatment: No *Physical Exam - Vital Signs Last Vital Signs Temp Pulse Resp BP Pulse Ox 98.0 F 76 18 153/90 98 12/10/19 22:20 12/10/19 22:20 12/10/19 22:20 12/10/19 22:20 12/10/19 22:20 ED Treatment Course - LABORATORY CBC & Chemistry Diagram: 12/10/19 22:50 12/10/19 22:50 - ADDITIONAL ORDERS Additional order review: Laboratory Results 12/10/19 22:29 POC Glucometer 106 12/10/19 12/10/19 22:50 22:29 RBC 4.23 MCV 93.2 MCHC 34.4 RDW 13.0 MPV 8.2 Neutrophils % 29.1 L Lymphocytes % 59.0 H Monocytes % 8.5 Eosinophils % 2.5 Basophils % 0.9 POC Glucometer 106 - Medications Given in the ED: ED Medications Discontinued Medications Generic Name Dose Route Start Last Admin Trade Name Freq PRN Reason Stop Dose Admin Famotidine/Sodium Chloride 20 mg in 50 mls @ 100 mls/hr 12/10/19 22:35 23:21 Pepcid 20 Mg Premixed Ivpb - IVPB 12/10/19 23:04 100 mls/hr ONCE ONE Administration Lactated Ringer's 1,000 ml 12/10/19 22:35 12/10/19 22:51 Lactated Ringers Solution IV 12/10/19 22:36 1,000 ml ONCE ONE Administration Morphine Sulfate 4 mg 12/10/19 22:35 12/10/19 22:51 Morphine Injection - IVPUSH 12/10/19 22:36 4 mg ONCE ONE Administration Ondansetron HCl 4 mg 12/10/19 22:35 12/10/19 22:51 Zofran Injection IVPUSH 12/10/19 22:36 4 mg ONCE ONE Administration Medical Decision Making - Medical Decision Making 12/11/19 03:02 Pt AMA The patient is clinically not intoxicated, free from distracting pain, appears to have intact insight, judgment and reason and in my medical opinion has the capacity to make decisions. The patient is also not under any duress to leave the hospital. In this scenario, it would be battery to subject a patient to treatment against his/her will. I have voiced my concerns for the patient's health given that a full evaluation and treatment had not occurred. I have discussed the need for continued evaluation to determine if their symptoms are caused by a condition that present risk of or morbidity. Risks including but not limited to , permanent disability, prolonged hospitalization, prolonged illness, were discussed. I tried offering alternative options in hopes that the patient might be amenable to partial evaluation and treatment which would be medically beneficial to the patient, though the patient declined my options and insisted on leaving. Because I have been unable to convince the patient to stay, I answered all of their questions about their condition and asked them to return to the ED as soon as possible to complete their evaluation , especially if their symptoms worsen or do not improve. I emphasized that leaving against medical advice does not preclude returning here for further evaluation. I asked the patient to return if they change their mind about the further evaluation and treatment. I strongly encouraged the patient to return to this Emergency Department or any Emergency Department at any time, particularly with worsening symptoms. Discharge - Discharge Information Problems reviewed: Yes Clinical Impression/Diagnosis: Abdominal pain Condition: Stable Disposition: AGAINST MEDICAL ADVICE - Admission No - Follow up/Referral - Patient Discharge Instructions Patient Printed Discharge Instructions: DI for Abdominal Pain-Adult Additional Instructions: You were offered admission to the hospital for intractable pain and elevated lactic acid levels, however you refused. You signed paperwork stating that you are aware that leaving the hospital against medical advice can lead to permanent disability or . Please see your Primary Doctor within the next 48 hours. Call and make an appointment to see your GI doctor, Doctor Martinez within the next 48 hours. Take over the counter medication such as Tylenol and Motrin as needed and directed on the packaging for pain control. Return to the ER for new or concerning symptoms. Thank you - Post Discharge Activity
--- NOTE | 2019-12-10 23:26 | PDOC ---
Attending Attestation - Resident Resident Name: Jozef Galvan - ED Attending Attestation I have performed the following: I have examined & evaluated the patient, The case was reviewed & discussed with the resident, I agree w/resident's findings & plan, Exceptions are as noted - HPI HPI: 12/10/19 23:20 33yo male presents for eval of abd pain. States he has a hx of abd pain and follows with Dr. Martinez. Pt states he did not take his meds today & hasn't eaten since breakfast today. States he has upper abd pain. Has assoc nausea. Pt arrives moaning, flailing on the stretcher in acute distress. Pt with upper abd pain and b/l flank pain. - Physicial Exam PE: 12/10/19 23:26 gen: awake, flailing on the bed heent: dry mm neck: supple heart: +s1s2 reg lungs: cta b/l abd: soft, epigastric ttp, b/l cva ttp ext: no c/c/e - Medical Decision Making 12/10/19 23:27 a/p: 33yo male with upper abd pain -pt is diaphoretic upon arrival -will send labs, lactate, lipase -will send medicate for nausea, pain, ivf -will obtain ct abd/pelvis -will monitor and reassess 12/11/19 00:27 pt with low mag- will replace pt withou elevated wbc lipase neg 12/11/19 00:28 ua and uds collected and sent 12/11/19 01:15 ua neg 12/11/19 01:55 +marijuana, opiates, benzos - pt given opiates and benzos in the Er prior to giving urine sample 12/11/19 01:59 ct without acute findings for pain 12/11/19 02:16 pt with pending lactate Heart Score/ECG Review - ECG Intrepretation Comment:: 12/10/19 23:28 sinus at 67, R victor axis, nl interval, t wave inversions inferior leads and biphasic t wave lateral leads - abnl ekg, unchanged from 201612/10/19 23:31 repeat ekg: sinus at 82, R victor axis, nl interval, lvh, biphasic t waves lateral leads with t wave inversions inferior leads which are unchanged from 2017
[2019-12-10 23:51] LABS: ALK PHOS 63 U/L (45-117); ANION GAP 12 MMOL/L (8-16); BILIRUBIN,TOTAL 0.6 mg/dL (0.2-1); BLOOD UREA NITROGEN 16.1 mg/dL (7-18); CALCIUM 8.5 mg/dL (8.5-10.1); CHLORIDE 106 mmol/L (98-107); CO2 22 mmol/L (21-32); CREATININE 1.2 mg/dL (0.55-1.3); GLUCOSE,RANDOM 110 mg/dL (74-106); LIPASE 66 U/L (73-393); MAGNESIUM 1.6 mg/dL (1.8-2.4); POTASSIUM 3.6 mmol/L (3.5-5.1); SGOT/AST 32 U/L (15-37); SGPT/ALT 40 U/L (13-61); SODIUM 140 mmol/L (136-145); TOT PROT 7.6 g/dl (6.4-8.2)
[2019-12-10] MEDS ORDERED: MAGNESIUM SULF 50% (8.12 MEQ/2 ML-1 GM VIAL) IVPB ONE (23:53)
[2019-12-11] MEDS ORDERED: KETOROLAC TROMETHAMINE 30 MG/1 ML VIAL IVPUSH ONE (00:28)
[2019-12-11] MEDS ORDERED: KETOROLAC TROMETHAMINE 30 MG/1 ML VIAL ONE (00:36)
[2019-12-11 01:08] LABS: PH,URINE 7.5 (5.0-8.0); URINE APPEARANCE CLEAR; URINE BILIRUBIN NEGATIVE (NEGATIVE); URINE COLOR YELLOW; URINE GLUCOSE (UA) 2+ (NEGATIVE); URINE KETONE NEGATIVE (NEGATIVE); URINE LEUK ESTERASE NEGATIVE (NEGATIVE); URINE NITRITE NEGATIVE (NEGATIVE); URINE PROTEIN NEGATIVE (NEGATIVE); URINE UROBILINOGEN 0.2 mg/dL (0.2-1.0)
[2019-12-11 01:18] LABS: COCAINE, UR NEGATIVE ng/ml (CUTOFF=300); METHADONE, UR NEGATIVE ng/ml (CUTOFF=300); PHENCYCLIDINE,URINE NEGATIVE ng/ml (CUTOFF=25); URINE AMPHETAMINES NEGATIVE ng/ml (CUTOFF=500); URINE BARBITURATES NEGATIVE ng/ml (CUTOFF=200); URINE BENZODIAZEPINES NEGATIVE ng/ml (CUTOFF=200)
[2019-12-11 01:41] LABS: OPIATES, URI POSITIVE ng/ml (CUTOFF=300)
--- NOTE | 2019-12-11 03:07 | PDOC ---
*Physical Exam - Vital Signs Last Vital Signs Temp Pulse Resp BP Pulse Ox 98.0 F 76 18 153/90 98 12/10/19 22:20 12/10/19 22:20 12/10/19 22:20 12/10/19 22:20 12/10/19 22:20 - Physical Exam 12/11/19 03:03 awake alert anxious appearing. lungs clear bilat heart rrr no mrg abd soft nt. pt moaning ED Treatment Course - LABORATORY CBC & Chemistry Diagram: 12/10/19 22:50 12/10/19 22:50 - ADDITIONAL ORDERS Additional order review: Laboratory Results 12/11/19 12/11/19 12/11/19 02:00 00:05 00:05 Sodium Potassium Chloride Carbon Dioxide Anion Gap BUN Creatinine Est GFR (CKD-EPI)AfAm Est GFR (CKD-EPI)NonAf POC Glucometer Random Glucose Lactic Acid 4.6 H* Calcium Magnesium Total Bilirubin AST ALT Alkaline Phosphatase Creatine Kinase Creatine Kinase Index CK-MB (CK-2) Troponin I Total Protein Albumin Lipase Urine Color Yellow Urine Appearance Clear Urine pH 7.5 D Ur Specific [place] 1.019 Urine Protein Negative Urine Glucose (UA) 2+ H Urine Ketones Negative Urine Blood Negative Urine Nitrite Negative Urine Bilirubin Negative Urine Urobilinogen 0.2 Ur Leukocyte Esterase Negative Opiates Screen Positive A* Methadone Screen Negative Barbiturate Screen Negative Phencyclidine Screen Negative Ur Amphetamines Screen Negative MDMA (Ecstasy) Screen Negative Benzodiazepines Screen Negative Cocaine Screen Negative U Marijuana (THC) Screen Positive A* 12/10/19 12/10/19 12/10/19 23:00 22:50 22:29 Sodium 140 Potassium 3.6 Chloride 106 Carbon Dioxide 22 Anion Gap 12 BUN 16.1 Creatinine 1.2 Est GFR (CKD-EPI)AfAm 90.89 Est GFR (CKD-EPI)NonAf 78.42 POC Glucometer 106 Random Glucose 110 H Lactic Acid 5.3 H* Calcium 8.5 Magnesium 1.6 L Total Bilirubin 0.6 AST 32 ALT 40 Alkaline Phosphatase 63 Creatine Kinase 912 H Creatine Kinase Index 0.3 CK-MB (CK-2) 3.4 Troponin I < 0.02 Total Protein 7.6 Albumin 4.0 Lipase 66 L Urine Color Urine Appearance Urine pH Ur Specific [place] Urine Protein Urine Glucose (UA) Urine Ketones Urine Blood Urine Nitrite Urine Bilirubin Urine Urobilinogen Ur Leukocyte Esterase Opiates Screen Methadone Screen Barbiturate Screen Phencyclidine Screen Ur Amphetamines Screen MDMA (Ecstasy) Screen Benzodiazepines Screen Cocaine Screen U Marijuana (THC) Screen 12/10/19 12/10/19 22:50 22:29 RBC 4.23 MCV 93.2 MCHC 34.4 RDW 13.0 MPV 8.2 Neutrophils % 29.1 L Lymphocytes % 59.0 H Monocytes % 8.5 Eosinophils % 2.5 Basophils % 0.9 POC Glucometer 106 - Medications Given in the ED: ED Medications Discontinued Medications Generic Name Dose Route Start Last Admin Trade Name Freq PRN Reason Stop Dose Admin Famotidine/Sodium Chloride 20 mg in 50 mls @ 100 mls/hr 12/10/19 22:35 23:21 Pepcid 20 Mg Premixed Ivpb - IVPB 12/10/19 23:04 100 mls/hr ONCE ONE Administration Ketorolac Tromethamine 30 mg 12/11/19 00:28 12/11/19 00:45 Toradol Injection - IVPUSH 12/11/19 00:29 30 mg ONCE ONE Administration Lactated Ringer's 1,000 ml 12/10/19 22:35 12/10/19 22:51 Lactated Ringers Solution IV 12/10/19 22:36 1,000 ml ONCE ONE Administration Lorazepam 2 mg 12/10/19 23:24 12/10/19 23:39 Ativan Injection - IVPUSH 12/10/19 23:25 2 mg ONCE ONE Administration Lorazepam 2 mg 12/10/19 23:26 12/10/19 23:39 Ativan Injection - IVPUSH 12/10/19 23:27 Not Given ONCE ONE Morphine Sulfate 4 mg 12/10/19 22:35 12/10/19 22:51 Morphine Injection - IVPUSH 12/10/19 22:36 4 mg ONCE ONE Administration Ondansetron HCl 4 mg 12/10/19 22:35 12/10/19 22:51 Zofran Injection IVPUSH 12/10/19 22:36 4 mg ONCE ONE Administration Medical Decision Making - Medical Decision Making 12/11/19 03:05 33 yo male presenting with pain. evaluated by prior team with ct a/p found to be negative. pt with persistant yelling bouts of pain in the Ed. labs unremarkable except noted elevated Lactic acid. repeat lactic acid only mild improvement. pt denies drug use. or percocet use at home. several episodes of running to bathroom to stool. pt offered admission. states he will leave against medical advice, his cousin will pick him up. 12/11/19 03:48 pt offered admission several more times as constantly moaning he was in pain. refused to stay in hospital. would like to go home. Discharge - Discharge Information Problems reviewed: Yes Clinical Impression/Diagnosis: Abdominal pain Condition: Stable Disposition: AGAINST MEDICAL ADVICE - Follow up/Referral - Patient Discharge Instructions Patient Printed Discharge Instructions: DI for Abdominal Pain-Adult Additional Instructions: You were offered admission to the hospital for intractable pain and elevated lactic acid levels, however you refused. You signed paperwork stating that you are aware that leaving the hospital against medical advice can lead to permanent disability or . Please see your Primary Doctor within the next 48 hours. Call and make an appointment to see your GI doctor, Doctor Martinez within the next 48 hours. Take over the counter medication such as Tylenol and Motrin as needed and directed on the packaging for pain control. Return to the ER for new or concerning symptoms. Thank you - Post Discharge Activity
--- NOTE | 2019-12-11 14:04 | EKG ---
Test Reason : Blood Pressure : / mmHG Vent. Rate : 067 BPM Atrial Rate : 067 BPM P-R Int : 186 ms QRS Dur : 088 ms QT Int : 402 ms P-R-T Axes : 002 091 -13 degrees QTc Int : 424 ms NORMAL SINUS RHYTHM RIGHTWARD AXIS ST ELEVATION CONSIDER LATERAL INJURY OR ACUTE INFARCT ABNORMAL ECG WHEN COMPARED WITH ECG OF 24-DEC-2016 14:09, ST MORE ELEVATED IN LATERAL LEADS T WAVE INVERSION MORE EVIDENT IN ANTERIOR LEADS Confirmed by ANDREZ YI MD ([id number]) on 12/11/2019 2:03:28 PM Referred By: Confirmed By:ANDREZ YI MD
--- NOTE | 2019-12-15 09:38 | EKG ---
Test Reason : Blood Pressure : / mmHG Vent. Rate : 082 BPM Atrial Rate : 082 BPM P-R Int : 194 ms QRS Dur : 092 ms QT Int : 394 ms P-R-T Axes : 081 091 018 degrees QTc Int : 460 ms NORMAL SINUS RHYTHM POSSIBLE LEFT ATRIAL ENLARGEMENT IRBBB RIGHTWARD AXIS LEFT VENTRICULAR HYPERTROPHY T WAVE ABNORMALITY, CONSIDER LATERAL ISCHEMIA PROLONGED QT ABNORMAL ECG WHEN COMPARED WITH ECG OF 10-DEC-2019 22:53, T WAVE INVERSION LESS EVIDENT IN ANTERIOR LEADS Confirmed by Helio Casarez ([id number]) on 12/15/2019 9:37:42 AM Referred By: Confirmed By:Heilo Casarez
== END 2019-12-11 04:20 | disposition left against medical advice (07) ==
LOC: JER 22:19
PROC: 3E033GC Introduction of Other Therapeutic Substance into Peripheral Vein, Percutaneous Approach (ICD-10-PCS; principal; 2019-12-10)
PROC: 3E033NZ Introduction of Analgesics, Hypnotics, Sedatives into Peripheral Vein, Percutaneous Approach (ICD-10-PCS; 2019-12-10)
PROC: 3E0333Z Introduction of Anti-inflammatory into Peripheral Vein, Percutaneous Approach (ICD-10-PCS; 2019-12-10)
DX: R10.9 Unspecified abdominal pain (principal); R74.0 Nonspecific elevation of levels of transaminase and lactic acid dehydrogenase [LDH]
CPT/HCPCS: 36415; 71045-TC-FY; 74177-TC; 80053; 80307; 81003; 82550; 82553; 82962; 83605; 83690; 83735; 84484; 85025; 93005; 93010; 99285-25

== ENCOUNTER 2019-12-12 10:12 | Emergency (ER) | payer BC ==
[2019-12-12 10:23] VITALS: BMI 38.6
[2019-12-12 10:57] LABS: BASO % 0.7 % (0-2.0); EOS % 0.1 % (0-4.5); HEMATOCRIT 41.3 % (35.4-49); HEMOGLOBIN 14.3 GM/dL (11.7-16.9); LYMPH % 21.1 % (8-40); MCH 31.8 pg (25.7-33.7); MCHC 34.8 g/dl (32.0-35.9); MEAN CELL VOLUME 91.5 fl (80-96); MEAN PLT VOLUME 8.4 fl (7.5-11.1); MONO % 9.8 % (3.8-10.2); NEUT % 68.3 % (42.8-82.8); PLATELET COUNT 237 K/MM3 (134-434); RBC 4.51 M/mm3 (4.00-5.60); RDW 13.1 % (11.9-15.9); WHITE BLOOD COUNT 5.4 K/mm3 (4.0-10.0)
[2019-12-12] MEDS ORDERED: SODIUM CHLORIDE 1,000 ML IV STA (11:40)
[2019-12-12] MEDS ORDERED: PANTOPRAZOLE SODIUM 40 MG VIAL IVPUSH ONE (11:41)
[2019-12-12] MEDS ORDERED: HALOPERIDOL LACTATE 5 MG/ML IM ONE (11:42)
--- NOTE | 2019-12-12 11:42 | PDOC ---
History of Present Illness - General Chief Complaint: Pain, Acute Stated Complaint: ABD PAIN Time Seen by Provider: 12/12/19 11:20 History Source: Patient Exam Limitations: No Limitations Past History - Past Medical History Allergies/Adverse Reactions: Allergies Allergy/AdvReac Type Severity Reaction Status Date / Time No Known Allergies Allergy Verified 12/12/19 10:23 Home Medications: Ambulatory Orders Omeprazole 40 mg PO DAILY 05/13/18 Hydrocodone/Acetaminophen [Hydrocodone-Acetamin 5-325 mg] 1 - 2 tab PO TID PRN #40 tablet MDD 6 05/16/18 Anemia: No Asthma: No Cancer: No Cardiac Disorders: No CVA: No COPD: No CHF: No Dementia: No Diabetes: No GI Disorders: Yes (colitis) Disorders: No HTN: No Hypercholesterolemia: No Liver Disease: No Seizures: No Thyroid Disease: No - Immunization History Immunization Up to Date: No - Psycho Social/Smoking Cessation Hx Smoking History: Current every day smoker Have you smoked in the past 12 months: Yes Number of Cigarettes Smoked Daily: 5 If you are a former smoker, when did you quit?: 02/24/2017 Information on smoking cessation initiated: No Hx Alcohol Use: No Drug/Substance Use Hx: No Substance Use Type: Alcohol, Marijuana Hx Substance Use Treatment: No *Physical Exam - Vital Signs Last Vital Signs Temp Pulse Resp BP Pulse Ox 98 F 61 16 180/95 H 100 12/12/19 10:15 12/12/19 10:15 12/12/19 10:15 12/12/19 10:15 12/12/19 10:15 ED Treatment Course - LABORATORY CBC & Chemistry Diagram: 12/12/19 10:30 12/12/19 10:30 - ADDITIONAL ORDERS Additional order review: 12/12/19 10:30 RBC 4.51 MCV 91.5 MCHC 34.8 RDW 13.1 MPV 8.4 Neutrophils % 68.3 D Lymphocytes % 21.1 D Monocytes % 9.8 Eosinophils % 0.1 D Basophils % 0.7 Discharge - Follow up/Referral Referrals: Sonido Martinez MD [Primary Care Provider] - - Patient Discharge Instructions - Post Discharge Activity
[2019-12-12] MEDS ORDERED: HALOPERIDOL LACTATE 5 MG/ML ONE (11:44)
[2019-12-12] MEDS ORDERED: PANTOPRAZOLE SODIUM 40 MG/100 ML BAG IVPB ONE (11:44)
[2019-12-12 11:50] LABS: ALBUMIN 4.2 g/dl (3.4-5.0); BILIRUBIN,TOTAL 1.8 mg/dL (0.2-1); BLOOD UREA NITROGEN 19.2 mg/dL (7-18); CALCIUM 9.3 mg/dL (8.5-10.1); CREATININE 1.5 mg/dL (0.55-1.3); POTASSIUM 3.7 mmol/L (3.5-5.1); TOT PROT 8.2 g/dl (6.4-8.2)
[2019-12-12] MEDS ORDERED: FAMOTIDINE 20 MG/50 ML IVPB 20 MG/50 ML MG IVPB ONE ×2 (12:30→13:24)
--- NOTE | 2019-12-12 14:03 | PDOC ---
Documentation entered by Milena Coffey SCRIBE, acting as scribe for Kimmy Schreiber MD. Kimmy Schreiber MD: This documentation has been prepared by the Erlinda hall Nirvannie, SCRIBE, under my direction and personally reviewed by me in its entirety. I confirm that the documentation accurately reflects all work, treatment, procedures, and medical decision making performed by me. History of Present Illness - General Chief Complaint: Pain, Acute Stated Complaint: ABD PAIN Time Seen by Provider: 12/12/19 11:20 History Source: Patient Exam Limitations: No Limitations - History of Present Illness Initial Comments: 12/12/19 12:56 The patient is a 33 year old male, with a significant past medical history of GERD and colitis, who presents to the emergency department with 2 days of waxing and waning abdominal pain. At its worst, the patient describes it as a 10/10, unable to find a comfortable position, with associated nausea with emesis x3. Patient has been noncompliant with his Omeprazole x2 days secondary to decreased PO intake. Patient was evaluated in the ED 12/09-12/10 for similar symptoms at which time he had a CT scan, labs, and chest x-ray which only depicted an elevated lactic acid, decreased Mg, and positive drug screen. Patient at that time signed out AMA secondary to feeling better but was advised to be admitted for further workup. Girlfriend at bedside notes similar episodes in the past without a definite diagnosis. Allergies: NKDA Past surgical history: None reported. Social History: +Marijuana smoker GI: Dr. Martinez Past History - Past Medical History Allergies/Adverse Reactions: Allergies Allergy/AdvReac Type Severity Reaction Status Date / Time No Known Allergies Allergy Verified 12/12/19 10:23 Home Medications: Ambulatory Orders Omeprazole 40 mg PO DAILY 05/13/18 Hydrocodone/Acetaminophen [Hydrocodone-Acetamin 5-325 mg] 1 - 2 tab PO TID PRN #40 tablet MDD 6 05/16/18 Anemia: No Asthma: No Cancer: No Cardiac Disorders: No CVA: No COPD: No CHF: No Dementia: No Diabetes: No GI Disorders: Yes (colitis) Disorders: No HTN: No Hypercholesterolemia: No Liver Disease: No Seizures: No Thyroid Disease: No - Immunization History Immunization Up to Date: No - Psycho Social/Smoking Cessation Hx Smoking History: Current every day smoker Have you smoked in the past 12 months: Yes Number of Cigarettes Smoked Daily: 5 If you are a former smoker, when did you quit?: 02/24/2017 Information on smoking cessation initiated: No Hx Alcohol Use: No Drug/Substance Use Hx: No Substance Use Type: Alcohol, Marijuana Hx Substance Use Treatment: No Review of Systems - Review of Systems Able to Perform ROS?: Yes Comments:: 12/12/19 12:57 GENERAL/CONSTITUTIONAL: No fever or chills. No weakness. HEAD, EYES, EARS, NOSE AND THROAT: No change in vision. No ear pain or discharge. No sore throat. CARDIOVASCULAR: No chest pain or shortness of breath. RESPIRATORY: No cough, wheezing, or hemoptysis. GASTROINTESTINAL: +Abdominal pain. + Nausea. +Vomiting. No diarrhea or constipation. GENITOURINARY: No dysuria, frequency, or change in urination. MUSCULOSKELETAL: No joint or muscle swelling or pain. No neck or back pain. SKIN: No rash. NEUROLOGIC: No headache, vertigo, loss of consciousness, or change in strength/sensation. ENDOCRINE: No increased thirst. No abnormal weight change. HEMATOLOGIC/LYMPHATIC: No anemia, easy bleeding, or history of blood clots. ALLERGIC/IMMUNOLOGIC: No hives or skin allergy. *Physical Exam - Vital Signs Last Vital Signs Temp Pulse Resp BP Pulse Ox 98 F 61 16 180/95 H 100 12/12/19 10:15 12/12/19 10:15 12/12/19 10:15 12/12/19 10:15 12/12/19 10:15 - Physical Exam GENERAL: Awake, alert, and fully oriented. Extremely anxious HEAD: No signs of trauma EYES: PERRLA, EOMI, sclera anicteric, conjunctiva clear ENT: Auricles normal inspection, hearing grossly normal, nares patent, oropharynx clear without exudates. Dry mucosa NECK: Normal ROM, supple, no lymphadenopathy, JVD, or masses LUNGS: Breath sounds equal, clear to auscultation bilaterally. No wheezes, and no crackles HEART: Regular rate and rhythm, normal S1 and S2, no murmurs, rubs or gallops ABDOMEN: Soft, normoactive bowel sounds. Diffusely tender with voluntary guarding, no rebound. No masses EXTREMITIES: Normal range of motion, no edema. No clubbing or cyanosis. No cords, erythema, or tenderness NEUROLOGICAL: Cranial nerves II through XII grossly intact. Normal speech, normal gait. Motor and sensation intact SKIN: Warm, dry, normal turgor, no rashes or lesions noted. ED Treatment Course - LABORATORY CBC & Chemistry Diagram: 12/12/19 10:30 12/12/19 10:30 - ADDITIONAL ORDERS Additional order review: 12/12/19 10:30 RBC 4.51 MCV 91.5 MCHC 34.8 RDW 13.1 MPV 8.4 Neutrophils % 68.3 D Lymphocytes % 21.1 D Monocytes % 9.8 Eosinophils % 0.1 D Basophils % 0.7 Medical Decision Making - Medical Decision Making 12/12/19 13:13 Labs reviewed, found to have elevated bilirubin, will obtain RUQ sono to r/o acute osmar. 12/12/19 15:57 Pt states he is feeling much better. Sono with no acute abnormality. Will give PO challenge. Discharge - Discharge Information Problems reviewed: Yes Clinical Impression/Diagnosis: Abdominal pain Qualifiers: Abdominal location: generalized Qualified Code(s): R10.84 - Generalized abdominal pain Condition: Improved Disposition: HOME - Admission No - Follow up/Referral Referrals: Sonido Martinez MD [Primary Care Provider] - - Patient Discharge Instructions Patient Printed Discharge Instructions: DI for Abdominal Pain-Adult - Post Discharge Activity
[2019-12-12 14:50] LABS: URINE APPEARANCE CLEAR; URINE BILIRUBIN NEGATIVE (NEGATIVE); URINE COLOR YELLOW; URINE GLUCOSE (UA) NEGATIVE (NEGATIVE); URINE KETONE 2+ (NEGATIVE); URINE LEUK ESTERASE NEGATIVE (NEGATIVE); URINE NITRITE NEGATIVE (NEGATIVE); URINE PROTEIN TRACE (NEGATIVE); URINE UROBILINOGEN 0.2 mg/dL (0.2-1.0)
[2019-12-12 15:31] LABS: COCAINE, UR NEGATIVE ng/ml (CUTOFF=300); METHADONE, UR NEGATIVE ng/ml (CUTOFF=300); OPIATES, URI NEGATIVE ng/ml (CUTOFF=300); PHENCYCLIDINE,URINE NEGATIVE ng/ml (CUTOFF=25); URINE AMPHETAMINES NEGATIVE ng/ml (CUTOFF=500); URINE BARBITURATES NEGATIVE ng/ml (CUTOFF=200); URINE BENZODIAZEPINES NEGATIVE ng/ml (CUTOFF=200)
[2019-12-12 16:32] VITALS: BP 141/86; PULSE 94; TEMP 98.2
== END 2019-12-12 17:22 | disposition home or self-care (01) ==
LOC: JER 10:12
PROC: 3E033GC Introduction of Other Therapeutic Substance into Peripheral Vein, Percutaneous Approach (ICD-10-PCS; principal; 2019-12-12)
PROC: 3E023NZ Introduction of Analgesics, Hypnotics, Sedatives into Muscle, Percutaneous Approach (ICD-10-PCS; 2019-12-12)
PROC: 3E033GC Introduction of Other Therapeutic Substance into Peripheral Vein, Percutaneous Approach (ICD-10-PCS; 2019-12-12)
PROC: 3E0337Z Introduction of Electrolytic and Water Balance Substance into Peripheral Vein, Percutaneous Approach (ICD-10-PCS; 2019-12-12)
DX: R10.84 Generalized abdominal pain (principal); F17.210 Nicotine dependence, cigarettes, uncomplicated
CPT/HCPCS: 36415; 76705-TC; 80053; 80307; 81003; 83690; 85025; 99285-25; J7030